=== PATIENT | female | born 1975 | race Caucasian/White ===

== ENCOUNTER → 2023-04-08 09:28 | Outpatient (REF) | payer OTHER, SELFPAY | LOC: RAD 09:28 | PROVIDERS: ATTENDING PHYSICIAN Physician Assistant Medical | DX: R10.2 Pelvic and perineal pain (principal) | CPT/HCPCS: 76830; 76856 ==

== ENCOUNTER → 2023-10-07 19:57 | Outpatient (REF) | payer OTHER, SELFPAY | LOC: MRI 19:57 | PROVIDERS: ATTENDING PHYSICIAN Physician Assistant Medical | DX: G43.009 Migraine without aura, not intractable, without status migrainosus (principal); G44.52 New daily persistent headache (NDPH); Z82.49 Family history of ischemic heart disease and other diseases of the circulatory system | CPT/HCPCS: 70544; 70551 ==

== ENCOUNTER → 2023-11-03 15:01 | Outpatient (REF) | payer OTHER, SELFPAY | LOC: HWEVLT 15:01 | PROVIDERS: ATTENDING PHYSICIAN Radiology Diagnostic Radiology | DX: I83.893 Varicose veins of bilateral lower extremities with other complications (principal) | CPT/HCPCS: 93970 ==